=== PATIENT | male | born 1995 | race Caucasian/White ===

== ENCOUNTER 2017-01-20 21:03 | Emergency (ER) | payer SELFPAY ==
[2017-01-20] MEDS ORDERED: ALPRAZolam 0.25 MG TAB PO ONE (21:16)
[2017-01-20 21:24] VITALS: O2SAT 99
[2017-01-20 23:19] VITALS: BP 105/60; TEMP 97.6
--- NOTE | 2017-01-21 06:14 | ED.PDOC ---
History of Present Illness - General Chief Complaint: Behavioral / Psych Stated Complaint: shaking, panic attack Time Seen by Provider: 01/20/17 21:13 Source: patient, family Exam Limitations: no limitations - History of Present Illness Initial Comments: Patient presents with acute on chronic anxiety attack. He was at [facility] for inpatient treatment two weeks ago. Over the last week he has had increasing anxiety and shaking. He is on Mirtazipine and Fluoxetine. He says the Mirtazapine affects his dreams and sleep. Today his anxiety got to the point that he and his family decided to come to the [facility] He says he has had thoughts about suicide but does not have a plan. He often has had these thoughts and is under treatment for them. He occasionally has homicidal ideations but does not have a plan to carry them out. He states that he does not think that he would actually hurt himself or anybody else and that they are just "thoughts". He has been shaky and nervous. No other complaints. Timing/Duration: week Severity: moderate Associated Symptoms: anxiety, suicidal ideation Allergies/Adverse Reactions: Allergies NO KNOWN ALLERGY Allergy (Verified 01/20/17 21:24) Home Medications: Ambulatory Orders Fluoxetine HCl [PROzac] 20 mg PO DAILY 01/20/17 Mirtazapine [Remeron] 15 mg PO BEDTIME 01/20/17 Review of Systems - Review of Systems Constitutional: States: no symptoms reported EENTM: States: no symptoms reported Respiratory: States: no symptoms reported Cardiology: States: no symptoms reported Gastrointestinal/Abdominal: States: no symptoms reported Genitourinary: States: no symptoms reported Musculoskeletal: States: no symptoms reported Skin: States: no symptoms reported Neurological: States: no symptoms reported Endocrine: States: no symptoms reported Hematologic/Lymphatic: States: no symptoms reported Past Medical History (General) - Patient Medical History Hx Seizures: No Hx Stroke: No Hx Dementia: No Hx Asthma: No Hx of COPD: No Hx Cardiac Disorders: No Hx Congestive Heart Failure: No Hx Pacemaker: No Hx Hypertension: No Hx Thyroid Disease: No Hx Diabetes: No Hx Gastroesophageal Reflux: No Hx Renal Disease: No Hx Cancer: No Hx of HIV: No Hx Hepatitis C: No Hx MRSA: No Surgical History: no surgical history - Vaccination History Hx Tetanus, Diphtheria Vaccination: No Hx Influenza Vaccination: No Immunizations Up to Date: No - Social History Hx Tobacco Use: Yes Cigarettes Packs Per Day: 1 Hx Chewing Tobacco Use: No Hx Alcohol Use: No Hx Substance Use: Yes Hx Substance Use Treatment: No Hx Depression: Yes Feels Threatened In Home Enviroment: No Feels Threatened In a Relationship: No Hx Physical Abuse: No Hx Emotional Abuse: No Hx Suspected Abuse: No Family Medical History - Family History Father Living Status: Still Living Hx Family;Other: Bipolar, Depression, Anxiety Physical Exam - Physical Exam General Appearance: Anxious Eyes, Ears, Nose, Throat Exam: normal ENT inspection Neck: non-tender, full range of motion, supple Respiratory: lungs clear Cardiovascular/Chest: normal peripheral pulses, tachycardia Gastrointestinal/Abdominal: normal bowel sounds, non tender, soft Extremities Exam: non-tender, normal range of motion, no edema Neurological: alert, anxious Appearance: appropriate appearance, appropriate insight, neat, no memory impairment Behavior/Eye Contact/Speech: cooperative, good eye contact, normal speech Thoughts/Hallucinations: normal thought pattern Skin Exam: normal color Progress - Progress Progress: 01/21/17 06:15 Patient was given alprazolam 1 gram po x one. Behavioral health came and evaluated the patient. The patient agreed to and signed a contract not to harm himself. See note. He calmed down considerably and felt ready to go home and get some sleep. He agreed to come to the walk in psychiatry clinic in the morning. While I was in the room, he was discussing with a friend getting transportation to the clinic. Patient was pleasant, calm, and rational upon discharge. He asserted that he did not have any suicidal ideation nor homicidal ideation at this time. Departure - Departure Clinical Impression: Anxiety attack Disposition: Discharge to Home or Self Care Condition: Good Departure Forms: ED Discharge - Pt. Copy, Patient Portal Self Enrollment Instructions: Anxiety and Panic Attacks (Alternative Therapy), DI for Anxiety - - Adult Diet: resume usual diet Activity: increase activity as tolerated Home Medications: Ambulatory Orders Fluoxetine HCl [PROzac] 20 mg PO DAILY 01/20/17 Mirtazapine [Remeron] 15 mg PO BEDTIME 01/20/17 Additional Instructions: F/u with Psychiatrist in morning as scheduled.
== END 2017-01-20 23:20 | disposition home or self-care (01) ==
LOC: ER 21:03
DX: F41.0 Panic disorder [episodic paroxysmal anxiety] (principal); F17.210 Nicotine dependence, cigarettes, uncomplicated; F32.9 Major depressive disorder, single episode, unspecified; Z79.899 Other long term (current) drug therapy